=== PATIENT | male | born 1995 | race Two or more races ===

== ENCOUNTER 2024-08-29 06:15 | Inpatient (IN) | payer MEDICAID, OTHER ==
[~2024-08-29] VITALS: Ht 190.5 cm; Wt 159.0 kg
[2024-08-29] MEDS: METOCLOPRAMIDE HCL 5MG/ml INJ 2ml VIAL IV ONE (07:11)
[2024-08-29] MEDS: KETOROLAC TROMETH 30 MG/ML 1ML VIAL IV ONE (07:11)
--- NOTE | 2024-08-29 07:29 | ED.PDOC ---
GI ASSESSMENT HPI Comments 29 year old male presents to the ED with chief complaint of abdominal pain. Patient reports that he had woken up around 2-3am this morning with 10/10 sharp RLQ abdominal pain that radiates to the right groin region. Patient relays that he also has had 2 associated episodes of nausea and vomiting prior to arrival in the ED. Patient denies any dysuria, history of kidney stones, diarrhea, fever, chills, difficulty urinating, testicular swelling, or hematemesis. Chief Complaint: Abdominal Pain Time Seen by MD: 07:25 Reviewed Notes: Nurses Notes, Medications, Allergies Allergies: Coded Allergies: NO KNOWN ALLERGIES (Unverified , 08/29/24) Information Source: Patient Mode of Arrival: Ambulatory Timing: Hours Duration: Since onset Prehospital treatment: None Quality: Sharp Vomitus: Watery Stool: Normal Severity: Moderate Recent: None Recent Hx of: None Pain Location: RLQ Modifying Factors: Nothing Associated sign and symptoms: Nausea, Vomiting, Abdominal Pain, Other (Testicle pain) Past Medical History PAST MEDICAL HISTORY: Denies Surgical History: Denies all surgeries Family History Family History: Reviewed,noncontributory to illness Social History Smoker: Non-Smoker Alcohol: Denies ETOH Use Drugs: Denies Drug Use Lives In: Home Constitutional: denies: chills, diaphoresis, fatigue, fever, malaise, sweats, weakness, others EENTM: denies: blurred vision, double vision, ear bleeding, ear discharge, ear drainage, ear pain, ear ringing, eye pain, eye redness, hearing loss, mouth pain , mouth swelling, nasal discharge, nose bleeding, nose congestion, nose pain, photophobia, tearing, throat pain, throat swelling, voice changes, others Respiratory: denies: cough, hemoptysis, orthopnea, SOB at rest, shortness of breath, SOB with excertion, stridor, wheezing, others Cardiovascular: denies: chest pain, dizzy spells, diaphoresis, Dyspnea on exertion, edema, irregular heart beat, left arm pain, lightheadedness, palpitations, PND, syncope, others Gastrointestinal: reports: abdominal pain, nausea, vomiting; denies: abdomen distended, blood streaked bowels, constipated, diarrhea, dysphagia, difficulty swallowing, hematemesis, melena, poor appetite, poor fluid intake, rectal bleeding, rectal pain, others Genitourinary: reports: testicle pain; denies: burning, dysuria, flank pain, frequency, hematuria, incontinence, penile discharge, penile sore, pain, testicle swelling, urgency, others Neurological: denies: dizziness, fainting, headache, left sided numbness, left sided weakness, numbness, paresthesia, pre-existing deficit, right sided numbness, right sided weakness, seizure, speech problems, tingling, tremors, weakness, others Musculoskeletal: denies: back pain, gout, joint pain, joint swelling, muscle pain, muscle stiffness, neck pain, others Integumetry: denies: bruises, change in color, change in hair/nails, dryness, laceration, lesions, lumps, rash, wounds, others Allergic/Immunocompromised: denies: Difficulty Healing, Frequent Infections, Hives, Itching, others Hematologic/Lymphatic: denies: anemia, blood clots, easy bleeding, easy bruising, swollen glands, others Endocrine: denies: excessive hunger, excessive sweating, excessive thirst, excessive urination, flushing, intolerance to cold, intolerance to heat, unexplained weight gain, unexplained weight loss, others Psychiatric: denies: anxiety, bipolar disorder, depression, hopeless, panic disorder, schizophrenia, sleepless, suicidal, others All Other Systems: Reviewed and Negative Physical Exam General Appearance: Moderate Distress, Obese HEENT: Normal ENT Inspection, PERRL/EOMI Neck: Full Range of Motion, Non-Tender, Normal, Normal Inspection Respiratory: Chest Non-Tender, Lungs Clear, No Accessory Muscle Use, No Respiratory Distress, Normal Breath Sounds Cardiovascular: No Edema, No JVD, No Murmur, No Gallop, Normal Peripheral Pulses, Regular Rate/Rhythm Breast Exam: Deferred Gastrointestinal: No Organomegaly, No Pulsatile Mass, Normal Bowel Sounds, Soft, Tenderness (Tenderness to the right inguinal region) Genitalia: Deferred Pelvic: Deferred Rectal: Deferred Extremities: No calf tenderness, Normal capillary refill, Normal inspection, Normal range of motion, Non-tender, No pedal edema Musculoskeletal : Apperance: Normal Neurologic: Alert, rn faculty II-XII nml as Tested, No Motor Deficits, Normal Affect, Normal Mood, No Sensory Deficits Cerebellar Function: Normal Reflexes: Normal Skin: Dry, Normal Color, Warm Lymphatic: No Adenopathy Was a procedure done? Was a procedure done?: No GI differential Dx Differential Diagnosis: AAA, Appendicitis, Aortic dissection, Bowel Obstruction X-Ray, Labs, Meds, VS Vital Signs Date Time Temp Pulse Resp B/P (MAP) Pulse Ox O2 Delivery O2 Flow Rate FiO2 08/29/24 13:57 98.4 92 18 148/95 (112) 98 98.4 08/29/24 11:03 82 20 99 Room Air 08/29/24 11:03 98.2 82 20 134/78 (96) 99 98.2 08/29/24 06:35 96.4 89 20 113/96 (102) 98 Lab Test 08/29/24 08:00 08/29/24 07:35 Range/Units Urine Color Madeline H Yellow Urine Clarity Cloudy H Clear Urine pH 5.5 5.0-9.0 Urine Specific [place] 1.031 1.001-1.035 Urine Protein 1+ H Negative Urine Ketones Negative Negative Urine Blood 3+ H Negative /uL Urine Nitrite Negative Negative Urine Bilirubin Negative Negative Urine Urobilinogen Normal Negative mg/dL Urine Leukocyte Esterase Negative Negative /uL Urine RBC 26 0 - 3 /hpf Urine WBC 3 0 - 3 /hpf Urine Squamous Epithelial Cells None seen <5 /hpf Urine Amorphous Crystals Mod None Seen /hpf Urine Bacteria None seen None Seen /hpf Urine Glucose Trace Normal mg/dL White Blood Count 11.3 H 4.4-10.8 10^3/uL Red Blood Count 5.58 4.5-5.90 10^6/uL Hemoglobin 13.5 13.5-17.5 g/dL Hematocrit 40.8 L 41.0-53.0 % Mean Corpuscular Volume 73.1 L 80.0-100.0 fL Mean Corpuscular Hemoglobin 24.1 L 28.0-32.0 pg Mean Corpuscular Hemoglobin Concent 33.0 32.0-36.0 g/dL Red Cell Distribution Width 15.8 H 11.8-14.3 % Platelet Count 229 140-450 10^3/uL Mean Platelet Volume 9.3 6.9-10.8 fL Neutrophils (%) (Auto) 67.5 37.0-80.0 % Lymphocytes (%) (Auto) 28.9 10.0-50.0 % Monocytes (%) (Auto) 2.8 0.0-12.0 % Eosinophils (%) (Auto) 0.3 0.0-7.0 % Basophils (%) (Auto) 0.5 0.0-2.0 % Neutrophils # (Auto) 7.6 1.6-8.6 10 ^3/uL Lymphocytes # (Auto) 3.3 0.4-5.4 10 ^3/uL Monocytes # (Auto) 0.3 0-1.3 10 ^3/uL Eosinophils # (Auto) 0 0-0.8 10 ^3/uL Basophils # (Auto) 0.1 0-0.2 10 ^3/uL Nucleated Red Blood Cells 0.0 % Sodium Level 139 136-145 mmol/L Potassium Level 4.1 3.5-5.1 mmol/L Chloride Level 106 98-107 mmol/L Carbon Dioxide Level 24 20-31 mmol/L Anion Gap 9 5-15 Blood Urea Nitrogen 15 9-23 mg/dL Creatinine 1.12 0.700-1.30 mg/dL Glomerular Filtration Rate Calc 92 >90 mL/min BUN/Creatinine Ratio 13.4 10.0-20.0 Serum Glucose 170 H 74-106 mg/dL Hemoglobin A1c 7.1 H <5.7 % A1C Calcium Level 9.8 8.7-10.4 mg/dL Total Bilirubin 0.4 0.2-1.0 mg/dL Aspartate Amino Transferase (AST) 75 H 13-40 U/L Alanine Aminotransferase (ALT) 85 H 7-40 U/L Alkaline Phosphatase 90 46-116 U/L Total Protein 7.9 5.7-8.2 g/dL Albumin 4.7 3.2-4.8 g/dL Current Medications Medications (Trade) Dose Ordered Sig/Mikhail Route Start Time Stop Time Status Last Admin Metoclopramide HCl (Reglan Injection) 10 mg ONCE ONCE IV 08/29/24 07:15 08/29/24 07:16 DC 08/29/24 07:11 Ketorolac Tromethamine (Toradol Injection) 30 mg ONCE ONCE IV 08/29/24 07:15 08/29/24 07:16 DC 08/29/24 07:11 CT Abd/Pel: Findings: Lung Bases: No acute or significant lung base finding. Normal heart size. No pl eural or pericardial effusion. Liver: The liver is normal in size. No focal lesions. Normal hepatic vascular enhancement. Diffusely hypoattenuating liver parenchyma consistent with hepatic steatosis. Gallbladder and Biliary Tree: The gallbladder is unremarkable. No biliary ductal dilatation. Spleen: Spleen is enlarged measuring 13.5 cm in length. Pancreas: The pancreas is normal in appearance without focal lesions or abnormal enhancement. Adrenal Glands: Unremarkable Kidneys: There is diminished enhancement of the right kidney as compared to the left. There is mild right hydronephrosis. There is a punctate stone at the ri ght ureterovesical junction. Left kidney and ureter are unremarkable. Bladder: Unremarkable Bowel: The stomach is grossly normal in appearance. Small bowel and colon are normal in caliber and distribution. The appendix is not visualized; however, no secondary findings of acute appendicitis identified. Intraperitoneal cavity: No pneumoperitoneum. No ascites. Lymphadenopathy: No mesenteric, retroperitoneal or periportal lymphadenopathy. Abdominal Wall and Mesentery: Unremarkable. Vasculature: The visualized abdominal aorta is normal in size and caliber. Abdominal and pelvic vessels demonstrate normal enhancement. Pelvic Organs: Unremarkable Musculoskeletal: No aggressive focal bony lesions, acute fractures or dislocation. IMPRESSION: 1. Mild right hydroureteronephrosis due to punctate obstructive calculus at the right ureterovesical junction. 2. Hepatic steatosis. 3. No findings to suggest acute appendicitis. 4. Splenomegaly. Time of 1ST Reevaluation: 08:25 Reevaluation 1ST: Improved Patient Education/Counseling: Diagnosis, Treatment Family Education/Counseling: No Family Present Additional Information I reviewed the following notes from patient's past medical encounters: None The following tests were ordered, and results were reviewed by me: CT Abd/Pel W/Wo IV Con, CBC, CMP, UA Additional Information was gathered from interviewing the following independent historians: None I reviewed and agreed with the following test results read by other providers: CT Abd/Pel W/Wo IV Con I discussed treatment and results with medical personnel. Departure 1 Departure Time of Disposition: 16:37 Impression: Primary Impression: Nephrolithiasis Additional Impressions: Ureteral obstruction Intractable abdominal pain Disposition: ADMITTED INPATIENT Admit to: Med Surg Condition: Stable Critical Care Note Critical Care Time?: No Stability Stability form required: No Heart Score Heart Score: Heart Score Response (Comments) Value History N/A 0 EKG N/A 0 Age N/A 0 Risk Factors N/A 0 Troponin N/A 0 Total 0 I personally scribed for MIMI GRAVES MD ([email or web address]) on 08/29/24 at 07:29. Electronically submitted by Tristan Johnson ([email or web address]). I personally scribed for MIMI GRAVES MD ([email or web address]) on 08/29/24 at 09:52. Electronically submitted by Tristan Johnson ([email or web address]). MIMI GRAVES MD Aug 29, 2024 07:29
[2024-08-29 08:19] LABS: Urine Bacteria None Seen /hpf (None Seen)
[2024-08-29 08:26] LABS: Albumin 4.7 g/dL (3.2-4.8); Alkaline Phosphatase 90 U/L (46-116); Anion Gap 9 (5-15); BUN/Creatinine Ratio 13.4 (10.0-20.0); Blood Urea Nitrogen 15 mg/dL (9-23); Calcium 9.8 mg/dL (8.7-10.4); Carbon Dioxide 24 mmol/L (20-31); Chloride 106 mmol/L (98-107); Eosinophils # (auto) 0 10 ^3/uL (0-0.8); Hemoglobin 13.5 g/dL (13.5-17.5); Lymphocytes # (auto) 3.3 10 ^3/uL (0.4-5.4); Monocytes # (auto) 0.3 10 ^3/uL (0-1.3); Potassium 4.1 mmol/L (3.5-5.1); Sodium 139 mmol/L (136-145)
[2024-08-29 08:27] LABS: Bilirubin, Total 0.4 mg/dL (0.2-1.0); Total Protein 7.9 g/dL (5.7-8.2)
[2024-08-29 08:30] LABS: Basophils # (auto) 0.1 10 ^3/uL (0-0.2); Basophils % (auto) 0.5 % (0.0-2.0); Eosinophils % (auto) 0.3 % (0.0-7.0); Hematocrit 40.8 % (41.0-53.0); Lymphocytes % (auto) 28.9 % (10.0-50.0); Mean Corpuscular Hemoglobin 24.1 pg (28.0-32.0); Mean Corpuscular Volume 73.1 fL (80.0-100.0); Monocytes % (auto) 2.8 % (0.0-12.0); Neutrophils # (auto) 7.6 10 ^3/uL (1.6-8.6); Neutrophils % (auto) 67.5 % (37.0-80.0); Platelet Count (auto) 229 10^3/uL (140-450); Red Blood Cells 5.58 10^6/uL (4.5-5.90); Red Cell Distribution Width 15.8 % (11.8-14.3); White Blood Cell 11.3 10^3/uL (4.4-10.8)
[2024-08-29 08:31] LABS: Alanine Aminotransferase 85 U/L (7-40); Aspartate Aminotransferase 75 U/L (13-40); Glucose 170 mg/dL (74-106)
[2024-08-29 09:15] LABS: Urine Amorphous Crystal MOD /hpf (None Seen); Urine Blood 3+ /uL (Negative); Urine Color Amber (Yellow); Urine Protein, UAD 1+ (Negative); Urine Specific Gravity 1.031 (1.001-1.035); Urine Squamous Epithelial Cell None Seen /hpf (<5); Urine Urobilinogen Normal (Negative); Urine WBC 3 /hpf (0 - 3); Urine pH 5.5 (5.0-9.0)
[2024-08-29 09:16] LABS: Urine Clarity Cloudy (Clear)
[2024-08-29] MEDS: IOHEXOL 300 MG/ML 100ML BOTTLE IJ ONE (09:22)
--- NOTE | 2024-08-29 09:49 | DVH ---
Exam: CT CT AB PELVIS W WO CON-IV ONLY History: ABd pain, RLQ. Rule out appendicitis or kidney stone. Comparison Study: None available at time of dictation. Technique: Multidetector spiral CT of the abdomen and pelvis was performed from lung bases to pubic s ymphysis. Imaging was performed with intravenous contrast using 100 mL Omnipaque 300 contrast. Nabeel nal and sagittal reformatted images are provided. Radiation Dose : CT Dose: CTDI volume is 27.11 mGy. Dose-length product is 2811.21 mGy*cm Findings: Lung Bases: No acute or significant lung base finding. Normal heart size. No pleural or pericardial effusion. Liver: The liver is normal in size. No focal lesions. Normal hepatic vascular enhancement. Diffusely hypoattenuating liver parenchyma consistent with hepatic steatosis. Gallbladder and Biliary Tree: The gallbladder is unremarkable. No biliary ductal dilatation. Spleen: Spleen is enlarged measuring 13.5 cm in length. Pancreas: The pancreas is normal in appearance without focal lesions or abnormal enhancement. Adrenal Glands: Unremarkable Kidneys: There is diminished enhancement of the right kidney as compared to the left. There is mild right hydronephrosis. There is a punctate stone at the right ureterovesical junction. Left kidney an d ureter are unremarkable. Bladder: Unremarkable Bowel: The stomach is grossly normal in appearance. Small bowel and colon are normal in caliber and d istribution. The appendix is not visualized; however, no secondary findings of acute appendicitis id entified. Intraperitoneal cavity: No pneumoperitoneum. No ascites. Lymphadenopathy: No mesenteric, retroperitoneal or periportal lymphadenopathy. Abdominal Wall and Mesentery: Unremarkable. Vasculature: The visualized abdominal aorta is normal in size and caliber. Abdominal and pelvic vess els demonstrate normal enhancement. Pelvic Organs: Unremarkable Musculoskeletal: No aggressive focal bony lesions, acute fractures or dislocation. IMPRESSION: 1. Mild right hydroureteronephrosis due to punctate obstructive calculus at the right ureterovesical junction. 2. Hepatic steatosis. 3. No findings to suggest acute appendicitis. 4. Splenomegaly. Radiation optimization: All CT scans at this facility use at least one of these dose optimization daria hniques: automated exposure control mA and/or kV adjustment per patient size (includes targeted exam s where dose is matched to clinical indication) or iterative reconstruction.
[2024-08-29] MEDS ORDERED: ONDANSETRON HCL 4 MG/2 ML VIAL IV PRN (15:15)
[2024-08-29] MEDS ORDERED: HYDROcodone-ACET 5/325MG TAB PO PRN (15:15)
[2024-08-29] MEDS ORDERED: MORPHINE SULFATE INJ 2 MG/ml SYRG IV PRN (15:15)
[2024-08-29] MEDS ORDERED: ACETAMINOPHEN 325 MG TAB PO PRN (15:15)
--- NOTE | 2024-08-29 15:18 | DVHHP2 ---
History of Present Illness Reason for Visit: Abdominal pain History of Present Illness Howard Luevano is a 29-year-old male with no past medical history who presents to the ED with nausea, vomiting, right lower quadrant abdominal pain x1 day. Patient reported around 10:30 p.m. this morning the pain started it has been constant sharp and 9/10 worse with ambulation. Patient reports that he does not smoke, drink, use illicit drugs, no surgeries, no medical history. Patient reports that he is still able to void and no complaints of hematuria. Patient also denies any recent trauma or injury. Patient denies chest pain, shortness of breath, fever, chills, diarrhea, lightheadedness, and dizziness. Past Surgical History: None Family History: DM, Other (Mom with diabetes) Smoke: No ALCOHOL: none Drugs: None Lives: with Family Domestic Violence: Neg Review of Systems Constitutional: No: Fever, Chills, Sweats, Weakness, Malaise, Other Eyes: No: Pain, Vision change, Conjunctivae inflammation, Eyelid inflammation, Other, Redness ENT: No: Ear pain, Ear discharge, Nose pain, Nose discharge, Nose congestion, Mouth pain, Mouth swelling, Throat pain, Throat swelling, Other Respiratory: No: Cough, Dry, Shortness of breath, SOB with excertion, Wheezing, Hemoptysis, Pleuritic Pain, Sputum, Wheezing, Other Cardiovascular: No: Chest Pain, Palpitations, Orthopnea, Paroxysmal Noc. Dyspnea, Edema, Lt Headedness, Other Gastrointestinal: Nausea, Vomiting, Abdominal Pain; No: Diarrhea, Constipation, Melena, Hematochezia, Other Genitourinary: No Dysuria, No Frequency, No Incontinence, No Hematuria, No Retention, No Other Musculoskeletal: No: other, neck pain, shoulder pain, arm pain, back pain, hand pain, leg pain, foot pain Skin: No: Rash, Lesions, Jaundice, Bruising, Other Neurological: No: Weakness, Numbness, Incoordination, Change in speech, Confusion, Seizures, Other Allergies: Coded Allergies: NO KNOWN ALLERGIES (Unverified , 08/29/24) Exam Vital Signs Vital Signs Date Time Temp Pulse Resp B/P (MAP) Pulse Ox O2 Delivery O2 Flow Rate FiO2 08/29/24 13:57 98.4 92 18 148/95 (112) 98 98.4 08/29/24 11:03 Room Air General Appearance: Alert, Oriented X3, Cooperative, No acute distress HEENT: Atraumatic, PERRLA, EOMI, Mucous membr. moist/pink Respiratory: Clear to auscultation, Normal air movement Cardiovascular: Regular rate, Normal S1, Normal S2 Abdominal: Normal bowel sounds, Soft, No tenderness, No hepatospenomegaly, No masses Extremities: No clubbing, No cyanosis, No edema, Normal pulses, No tenderness/swelling Skin: No rashes, No breakdown, No significant lesion Neuro: Normal gait, Normal speech, Strength at 5/5 X4 ext, Normal tone, Sensation intact Psych/Mental Status: Mental status NL, Mood NL Labs/Xrays Labs Test 08/29/24 08:00 08/29/24 07:35 Range/Units Urine Color Madeline H Yellow Urine Clarity Cloudy H Clear Urine pH 5.5 5.0-9.0 Urine Specific [place] 1.031 1.001-1.035 Urine Protein 1+ H Negative Urine Ketones Negative Negative Urine Blood 3+ H Negative /uL Urine Nitrite Negative Negative Urine Bilirubin Negative Negative Urine Urobilinogen Normal Negative mg/dL Urine Leukocyte Esterase Negative Negative /uL Urine RBC 26 0 - 3 /hpf Urine WBC 3 0 - 3 /hpf Urine Squamous Epithelial Cells None seen <5 /hpf Urine Amorphous Crystals Mod None Seen /hpf Urine Bacteria None seen None Seen /hpf Urine Glucose Trace Normal mg/dL White Blood Count 11.3 H 4.4-10.8 10^3/uL Red Blood Count 5.58 4.5-5.90 10^6/uL Hemoglobin 13.5 13.5-17.5 g/dL Hematocrit 40.8 L 41.0-53.0 % Mean Corpuscular Volume 73.1 L 80.0-100.0 fL Mean Corpuscular Hemoglobin 24.1 L 28.0-32.0 pg Mean Corpuscular Hemoglobin Concent 33.0 32.0-36.0 g/dL Red Cell Distribution Width 15.8 H 11.8-14.3 % Platelet Count 229 140-450 10^3/uL Mean Platelet Volume 9.3 6.9-10.8 fL Neutrophils (%) (Auto) 67.5 37.0-80.0 % Lymphocytes (%) (Auto) 28.9 10.0-50.0 % Monocytes (%) (Auto) 2.8 0.0-12.0 % Eosinophils (%) (Auto) 0.3 0.0-7.0 % Basophils (%) (Auto) 0.5 0.0-2.0 % Neutrophils # (Auto) 7.6 1.6-8.6 10 ^3/uL Lymphocytes # (Auto) 3.3 0.4-5.4 10 ^3/uL Monocytes # (Auto) 0.3 0-1.3 10 ^3/uL Eosinophils # (Auto) 0 0-0.8 10 ^3/uL Basophils # (Auto) 0.1 0-0.2 10 ^3/uL Nucleated Red Blood Cells 0.0 % Sodium Level 139 136-145 mmol/L Potassium Level 4.1 3.5-5.1 mmol/L Chloride Level 106 98-107 mmol/L Carbon Dioxide Level 24 20-31 mmol/L Anion Gap 9 5-15 Blood Urea Nitrogen 15 9-23 mg/dL Creatinine 1.12 0.700-1.30 mg/dL Glomerular Filtration Rate Calc 92 >90 mL/min BUN/Creatinine Ratio 13.4 10.0-20.0 Serum Glucose 170 H 74-106 mg/dL Calcium Level 9.8 8.7-10.4 mg/dL Total Bilirubin 0.4 0.2-1.0 mg/dL Aspartate Amino Transferase (AST) 75 H 13-40 U/L Alanine Aminotransferase (ALT) 85 H 7-40 U/L Alkaline Phosphatase 90 46-116 U/L Total Protein 7.9 5.7-8.2 g/dL Albumin 4.7 3.2-4.8 g/dL Exam: CT CT AB PELVIS W WO CON-IV ONLY History: ABd pain, RLQ. Rule out appendicitis or kidney stone. Comparison Study: None available at time of dictation. Technique: Multidetector spiral CT of the abdomen and pelvis was performed from lung bases to pubic symphysis. Imaging was performed with intravenous contrast using 100 mL Omnipaque 300 contrast. Coronal and sagittal reformatted images are provided. Radiation Dose : CT Dose: CTDI volume is 27.11 mGy. Dose-length product is 2811.21 mGy*cm Findings: Lung Bases: No acute or significant lung base finding. Normal heart size. No pleural or pericardial effusion. Liver: The liver is normal in size. No focal lesions. Normal hepatic vascular enhancement. Diffusely hypoattenuating liver parenchyma consistent with hepatic steatosis. Gallbladder and Biliary Tree: The gallbladder is unremarkable. No biliary ductal dilatation. Spleen: Spleen is enlarged measuring 13.5 cm in length. Pancreas: The pancreas is normal in appearance without focal lesions or abnormal enhancement. Adrenal Glands: Unremarkable Kidneys: There is diminished enhancement of the right kidney as compared to the left. There is mild right hydronephrosis. There is a punctate stone at the right ureterovesical junction. Left kidney and ureter are unremarkable. Bladder: Unremarkable Bowel: The stomach is grossly normal in appearance. Small bowel and colon are normal in caliber and distribution. The appendix is not visualized; however, no secondary findings of acute appendicitis identified. Intraperitoneal cavity: No pneumoperitoneum. No ascites. Lymphadenopathy: No mesenteric, retroperitoneal or periportal lymphadenopathy. Abdominal Wall and Mesentery: Unremarkable. Vasculature: The visualized abdominal aorta is normal in size and caliber. Abdominal and pelvic vessels demonstrate normal enhancement. Pelvic Organs: Unremarkable Musculoskeletal: No aggressive focal bony lesions, acute fractures or dislocation. IMPRESSION: 1. Mild right hydroureteronephrosis due to punctate obstructive calculus at the right ureterovesical junction. 2. Hepatic steatosis. 3. No findings to suggest acute appendicitis. 4. Splenomegaly. Assessment/Plan Assessment/Plan Assessment/Plan: Intractable abdominal pain likely secondary to mild right hydroureter nephrosis Leukocytosis Elevated AST Elevated ALT Mild right hydroureteronephrosis due to punctate obstructive calculus at the right ureterovesical junction. Pain management Antiemetics CT abdomen pelvis noted UA noted Labs A.m. labs Flomax US kidney Hyperglycemia Hemoglobin A1c Splenomegaly Hepatic steatosis Follow up outpatient with PCP Morbid obesity Educated patient on lifestyle modifications, diet, and exercise FEN/PPX Diet IV fluids DVT prophylaxis not indicated patient ambulating PD prophylaxis not indicated patient with no history of GERD or GI bleed Admit to med surg Patient states he doesn't take any home medications Discussed plan of care with patient, mom and nurse Plan discussed with: Patient My Orders Orders - ESTEFANÍA EVANGELISTA Procedure Category Date Status Time Admit ADMIT 08/29/24 Transmitted 15:03 Allergies GILES 08/29/24 Transmitted 15:03 Code Status CODE 08/29/24 Transmitted 15:03 0.9% Ns 1000 Ml PHA 08/29/24 Transmitted 15:15 Hydrocodone-Acet PHA 08/29/24 Transmitted 5/325mg Tab ([place] 15:15 Ondansetron Hcl PHA 08/29/24 Transmitted (Zofran) 15:15 Complete Blood Count LAB 08/30/24 Verified 04:00 Comprehensive LAB 08/30/24 Verified Metabolic Panel 04:00 Cardiac DIET 08/29/24 Transmitted Diet-2gna,Lofat,Lochol Dinner Acetaminophen Tablet PHA 08/29/24 Transmitted (Tylenol Tablet) 15:15 Morphine Sulfate PHA 08/29/24 Transmitted Injection 15:15 Tamsulosin PHA 08/29/24 Transmitted Hydrochloride (Flomax) 15:15 Tamsulosin PHA 08/29/24 Transmitted Hydrochloride (Flomax) 18:00 Ceftriaxone Ivpb PHA 08/30/24 Verified Rocephin 09:00 Ceftriaxone Ivpb PHA 08/29/24 Verified Rocephin 15:15 Date of Service: Aug 29, 2024 Billing Provider: ESTEFANÍA EVANGELISTA Common Visit Codes: [id number] INP/OBS CARE (HIGH) ESTEFANÍA EVANGELISTA Aug 29, 2024 15:18
[2024-08-29 15:32] VITALS: BP 148/76; PULSE 94; RESP 18; TEMP 99.2; O2SAT 98
[2024-08-29 15:45] VITALS: BP 148/76; PULSE 94; RESP 18; TEMP 99.2; O2SAT 98
--- NOTE | 2024-08-29 15:47 | DVH ---
RENAL ULTRASOUND CLINICAL HISTORY: right hydronephrosis TECHNIQUE: Multiple ultrasound images of the kidneys and bladder were obtained. COMPARISON: None FINDINGS: The right kidney measures 13 cm in length. The left kidney measures 12 cm. The kidneys demonstrate ap propriate echotexture without evidence of a discrete renal lesion, nephrolithiasis or hydronephrosis. There is normal renal cortical thickness. Bladder appears within normal limits prevoid volume measuring 456 cc. IMPRESSION: 1. Unremarkable renal ultrasound. HS:Y
[2024-08-29] MEDS: SODIUM CHLORIDE 0.9% 1,000 ML IV SCH (15:54)
[2024-08-29] MEDS: TAMSULOSIN HYDROCHLORIDE 0.4 MG CAP PO ONE (16:04)
[2024-08-29] MEDS: cefTRIAXone 1GM/50ML D5W 50 ML IV ONE (16:04)
[2024-08-29 17:00] VITALS: BP 142/75; PULSE 82; RESP 16; TEMP 99.1; O2SAT 100
[2024-08-29 20:00] VITALS: RESP 20; O2SAT 98
[2024-08-29 21:00] VITALS: BP 119/67; PULSE 100; RESP 21; TEMP 98; O2SAT 100
[2024-08-30] VITALS (8 sets, daily range): BP systolic 108–138; BP diastolic 64–84; PULSE 72–91; RESP 17–21; TEMP 97.5–98.6; O2SAT 92–99
[2024-08-30 06:12] LABS: Eosinophils # (auto) 0.1 10 ^3/uL (0-0.8); Eosinophils % (auto) 1.5 % (0.0-7.0); Hemoglobin 12.2 g/dL (13.5-17.5); Lymphocytes # (auto) 4.4 10 ^3/uL (0.4-5.4); Monocytes # (auto) 0.5 10 ^3/uL (0-1.3); Neutrophils # (auto) 4.2 10 ^3/uL (1.6-8.6); Nucleated Red Blood Cells % 0.1 %; Red Cell Distribution Width 15.9 % (11.8-14.3)
[2024-08-30 06:14] LABS: Albumin 4.2 g/dL (3.2-4.8); Alkaline Phosphatase 76 U/L (46-116); Anion Gap 7 (5-15); BUN/Creatinine Ratio 19.6 (10.0-20.0); Bilirubin, Total 0.6 mg/dL (0.2-1.0); Blood Urea Nitrogen 18 mg/dL (9-23); Calcium 9.6 mg/dL (8.7-10.4); Carbon Dioxide 25 mmol/L (20-31); Potassium 4.3 mmol/L (3.5-5.1); Sodium 141 mmol/L (136-145); Total Protein 6.9 g/dL (5.7-8.2)
[2024-08-30 06:15] LABS: Basophils # (auto) 0.1 10 ^3/uL (0-0.2); Basophils % (auto) 0.7 % (0.0-2.0); Hematocrit 37.6 % (41.0-53.0); Lymphocytes % (auto) 47.5 % (10.0-50.0); Mean Corpuscular Hemoglobin 23.9 pg (28.0-32.0); Mean Corpuscular Hgb Conc. 32.5 g/dL (32.0-36.0); Mean Corpuscular Volume 73.5 fL (80.0-100.0); Monocytes % (auto) 5.1 % (0.0-12.0); Neutrophils % (auto) 45.2 % (37.0-80.0); Platelet Count (auto) 221 10^3/uL (140-450); Red Blood Cells 5.11 10^6/uL (4.5-5.90); White Blood Cell 9.3 10^3/uL (4.4-10.8)
[2024-08-30 06:16] LABS: Alanine Aminotransferase 71 U/L (7-40); Aspartate Aminotransferase 44 U/L (13-40); Chloride 109 mmol/L (98-107); Glucose 142 mg/dL (74-106)
[2024-08-30] MEDS: cefTRIAXone 1GM/50ML D5W 50 ML IV SCH (08:44)
--- NOTE | 2024-08-30 12:45 | DVHPN2 ---
Reviewed: Care Plan, H&P, Labs, Medications, Previous Orders, Radiology Changes from previous H/P or p: No Changes Eyes: No Pain, No Vision change, No Conjunctivae inflammation, No Eyelid inflammation, No Other, No Redness ENT: No Ear pain, No Ear discharge, No Nose pain, No Nose discharge, No Nose congestion, No Mouth pain, No Mouth swelling, No Throat pain, No Throat swelling, No Other Cardiovascular: No Chest Pain, No Palpitations, No Orthopnea, No Paroxysmal Noc. Dyspnea, No Edema, No Lt Headedness, No Other Respiratory: No Cough, No Dry, No Shortness of breath, No SOB with excertion, No Wheezing, No Hemoptysis, No Pleuritic Pain, No Sputum, No Other Gastrointestinal: Nausea, Vomiting, Abdominal Pain; No Diarrhea, No Constipation, No Melena, No Hematochezia, No Other Genitourinary: No Dysuria, No Frequency, No Incontinence, No Hematuria, No Retention, No Other Musculoskeletal: No other, No neck pain, No shoulder pain, No arm pain, No back pain, No hand pain, No leg pain, No foot pain Skin: No Rash, No Lesions, No Jaundice, No Bruising, No Other Objective Vitals Vital Signs Date Time Temp Pulse Resp B/P (MAP) Pulse Ox O2 Delivery O2 Flow Rate FiO2 08/30/24 08:56 98.3 88 17 118/71 (87) 95 98.3 08/29/24 20:00 Room Air* 0 21 Intake/Output Intake and Output 08/30/24 07:00 Intake Total 1444 ml Output Total 591 ml Balance 853 ml Intake Oral 1334 ml IV Total 110 ml Output Urine Total 591 ml # Voids 2 # Bowel Movements 1 Medications Current Medications Medications Dose Ordered Sig/Mikhail Route Start Time Stop Time Status Last Admin Dose Admin Sodium Chloride 1,000 ml @ 100 mls/hr Q10H IV 08/29/24 15:15 08/30/24 01:15 100 MLS/HR Acetaminophen/ Hydrocodone Bitart 1 tab Q4HP PRN PO 08/29/24 15:15 Ondansetron HCl 4 mg Q4HP PRN IV 08/29/24 15:15 Acetaminophen 650 mg Q6HP PRN PO 08/29/24 15:15 Morphine Sulfate 2 mg Q4HPRN PRN IV 08/29/24 15:15 Tamsulosin HCl 0.4 mg QPM PO 08/30/24 18:00 Ceftriaxone Sodium 50 ml @ 100 mls/hr DAILY@09 IV 08/30/24 09:00 08/30/24 08:44 100 MLS/HR Laboratory Results Laboratory Tests 08/30/24 05:24 Chemistry Test 08/30/24 05:24 Albumin 4.2 g/dL (3.2-4.8) Calcium Level 9.6 mg/dL (8.7-10.4) Total Protein 6.9 g/dL (5.7-8.2) LFT Test 08/30/24 05:24 Alanine Aminotransferase (ALT) 71 U/L (7-40) H Alkaline Phosphatase 76 U/L (46-116) Aspartate Amino Transferase (AST) 44 U/L (13-40) H Total Bilirubin 0.6 mg/dL (0.2-1.0) Urinalysis Test 08/29/24 08:00 Urine Color Madeline (Yellow) H Urine Clarity Cloudy (Clear) H Urine pH 5.5 (5.0-9.0) Urine Specific [place] 1.031 (1.001-1.035) Urine Protein 1+ (Negative) H Urine Ketones Negative (Negative) Urine Blood 3+ /uL (Negative) H Urine Nitrite Negative (Negative) Urine Bilirubin Negative (Negative) Urine Urobilinogen Normal mg/dL (Negative) Urine Leukocyte Esterase Negative /uL (Negative) Urine RBC 26 /hpf (0 - 3) Urine WBC 3 /hpf (0 - 3) Urine Squamous Epithelial Cells None seen /hpf (<5) Urine Amorphous Crystals Mod /hpf (None Seen) Urine Bacteria None seen /hpf (None Seen) Urine Glucose Trace mg/dL (Normal) Labs and/or images reviewed: Labs reviewed by me, Image(s) reviewed by me Assessment/Plan Assessment/Plan Abdominal pain nausea and vomiting unknown etiology: Consult for GI Dr. Castillo, urine drug screen ordered, Rocephin Acute appendicitis ruled out Acute cholecystitis ruled out Acute dehydration: IV fluids Time spent 35 minutes Plan discussed with: Patient My Orders Orders - RACHAEL HOPE MD Procedure Category Date Status Time Drug Screen LAB 08/30/24 Logged 12:42 * Gi D[facility] Conference Translator CONS 08/30/24 Verified 12:42 Date of Service: Aug 30, 2024 Billing Provider: RACHAEL HOPE MD Common Visit Codes: [id number] INP/OBS CARE(HIGH) RACHAEL HOPE MD Aug 30, 2024 12:45
--- NOTE | 2024-08-30 14:10 | DVHINCON2 ---
Date of service: Aug 30, [address] Marysol Jacob Reason for Consultation Abdominal pain nausea vomiting History of Present Illness This 29-year-old obese man with history of mild hypertension admitted with complaints of nausea vomiting right lower quadrant pain radiating to both the suprapubic area. He has no hematemesis no melena no diarrhea hematochezia CT scan showed possible kidney stone the urinalysis shows hematuria 3+ and AST ALT are increased probably from nonalcoholic liver disease (MASLD) GI consult is because of the GI symptoms Past Medical History Obesity Past Surgical History None Family History: Diabetes mellitus G8 MOTHER Family History Diabetes Social History Denies smoking or drinking Allergies: Coded Allergies: NO KNOWN ALLERGIES (Unverified , 08/29/24) Current Medications Current Medications Medications (Trade) Dose Ordered Sig/Mikhail Route PRN Reason Start Time Stop Time Status Last Admin Sodium Chloride 1,000 ml @ 100 mls/hr Q10H IV 08/29/24 15:15 08/30/24 01:15 Acetaminophen/ Hydrocodone Bitart (Merritt 5/325MG Tab) 1 tab Q4HP PRN PO MODERATE PAIN (4-6 PAIN SCALE) 08/29/24 15:15 Ondansetron HCl (Zofran) 4 mg Q4HP PRN IV NAUSEA / VOMITING 08/29/24 15:15 Acetaminophen (Tylenol Tablet) 650 mg Q6HP PRN PO PAIN SCALE 1-3 OR TEMP>100.4 08/29/24 15:15 Morphine Sulfate 2 mg Q4HPRN PRN IV SEVERE PAIN (7-10 PAIN SCALE) 08/29/24 15:15 Tamsulosin HCl (Flomax) 0.4 mg QPM PO 08/30/24 18:00 Ceftriaxone Sodium 50 ml @ 100 mls/hr DAILY@09 IV 08/30/24 09:00 08/30/24 08:44 Review of Systems unRemarkable Vital Signs Vital Signs Date Time Temp Pulse Resp B/P (MAP) Pulse Ox O2 Delivery O2 Flow Rate FiO2 08/30/24 13:00 98.0 72 17 129/75 (93) 95 98.0 08/29/24 20:00 Room Air* 0 21 Physical Exam Obese male no acute distress vital signs are stable HEENT examination no pallor no icterus lungs: Clear Cardiovascular , unremarkable Abdomen soft obese mild tenderness in the suprapubic area rigidity no guarding Extremities no edema Labs/Diagnostic Data Labs Test 08/30/24 05:24 08/29/24 08:00 08/29/24 07:35 Range/Units White Blood Count 9.3 4.4-10.8 10^3/uL Red Blood Count 5.11 4.5-5.90 10^6/uL Hemoglobin 12.2 L 13.5-17.5 g/dL Hematocrit 37.6 L 41.0-53.0 % Mean Corpuscular Volume 73.5 L 80.0-100.0 fL Mean Corpuscular Hemoglobin 23.9 L 28.0-32.0 pg Mean Corpuscular Hemoglobin Concent 32.5 32.0-36.0 g/dL Red Cell Distribution Width 15.9 H 11.8-14.3 % Platelet Count 221 140-450 10^3/uL Mean Platelet Volume 9.1 6.9-10.8 fL Neutrophils (%) (Auto) 45.2 37.0-80.0 % Lymphocytes (%) (Auto) 47.5 10.0-50.0 % Monocytes (%) (Auto) 5.1 0.0-12.0 % Eosinophils (%) (Auto) 1.5 0.0-7.0 % Basophils (%) (Auto) 0.7 0.0-2.0 % Neutrophils # (Auto) 4.2 1.6-8.6 10 ^3/uL Lymphocytes # (Auto) 4.4 0.4-5.4 10 ^3/uL Monocytes # (Auto) 0.5 0-1.3 10 ^3/uL Eosinophils # (Auto) 0.1 0-0.8 10 ^3/uL Basophils # (Auto) 0.1 0-0.2 10 ^3/uL Nucleated Red Blood Cells 0.1 % Sodium Level 141 136-145 mmol/L Potassium Level 4.3 3.5-5.1 mmol/L Chloride Level 109 H 98-107 mmol/L Carbon Dioxide Level 25 20-31 mmol/L Anion Gap 7 5-15 Blood Urea Nitrogen 18 9-23 mg/dL Creatinine 0.92 0.700-1.30 mg/dL Glomerular Filtration Rate Calc 116 >90 mL/min BUN/Creatinine Ratio 19.6 10.0-20.0 Serum Glucose 142 H 74-106 mg/dL Calcium Level 9.6 8.7-10.4 mg/dL Total Bilirubin 0.6 0.2-1.0 mg/dL Aspartate Amino Transferase (AST) 44 H 13-40 U/L Alanine Aminotransferase (ALT) 71 H 7-40 U/L Alkaline Phosphatase 76 46-116 U/L Total Protein 6.9 5.7-8.2 g/dL Albumin 4.2 3.2-4.8 g/dL Urine Color Madeline H Yellow Urine Clarity Cloudy H Clear Urine pH 5.5 5.0-9.0 Urine Specific [place] 1.031 1.001-1.035 Urine Protein 1+ H Negative Urine Ketones Negative Negative Urine Blood 3+ H Negative /uL Urine Nitrite Negative Negative Urine Bilirubin Negative Negative Urine Urobilinogen Normal Negative mg/dL Urine Leukocyte Esterase Negative Negative /uL Urine RBC 26 0 - 3 /hpf Urine WBC 3 0 - 3 /hpf Urine Squamous Epithelial Cells None seen <5 /hpf Urine Amorphous Crystals Mod None Seen /hpf Urine Bacteria None seen None Seen /hpf Urine Glucose Trace Normal mg/dL Hemoglobin A1c 7.1 H <5.7 % A1C Assessment 29-year-old obese male with a history of suprapubic pain as well as right low quadrant pain with nausea and vomiting. Denying any unusual food intake she denies history of any hematemesis or melena patient's calcium dysuria and hematuria in her urine examination Insert patient has got a kidney stone in the right ureter Ms. Feeling better and has some stone particles in the urine according to the patient Physical exams and morbidly obese male and some tenderness in the suprapubic area no masses AST ALT increased probably from MASLD (Metabolic dysfunction associated liver disease) Plan/Recommendation Recommend plenty of fluids and watch the urine Pain so much better and the problems from the ureteric stone If symptoms persist may need further evaluate To follow the liver enzymes and aggressive measures to reduce the weight including possibly Ozempic etc Thank you Dr. Vences Plan discussed with: Patient BOB VENCES MD Aug 30, 2024 14:10
[2024-08-30] MEDS: TAMSULOSIN HYDROCHLORIDE 0.4 MG CAP PO SCH (18:03)
[2024-08-31 01:00] VITALS: BP 130/79; PULSE 83; RESP 19; TEMP 99.3; O2SAT 96
[2024-08-31 05:00] VITALS: BP 131/83; PULSE 85; RESP 21; TEMP 97.8; O2SAT 96
[2024-08-31 08:55] VITALS: BP 126/84; PULSE 79; RESP 18; TEMP 97.5; O2SAT 96
--- NOTE | 2024-08-31 09:35 | DVHPN2 ---
Reviewed: Care Plan, H&P, Labs, Medications, Previous Orders, Radiology Changes from previous H/P or p: No Changes Eyes: No Pain, No Vision change, No Conjunctivae inflammation, No Eyelid inflammation, No Other, No Redness ENT: No Ear pain, No Ear discharge, No Nose pain, No Nose discharge, No Nose congestion, No Mouth pain, No Mouth swelling, No Throat pain, No Throat swelling, No Other Cardiovascular: No Chest Pain, No Palpitations, No Orthopnea, No Paroxysmal Noc. Dyspnea, No Edema, No Lt Headedness, No Other Respiratory: No Cough, No Dry, No Shortness of breath, No SOB with excertion, No Wheezing, No Hemoptysis, No Pleuritic Pain, No Sputum, No Other Gastrointestinal: Nausea, Vomiting, Abdominal Pain; No Diarrhea, No Constipation, No Melena, No Hematochezia, No Other Genitourinary: No Dysuria, No Frequency, No Incontinence, No Hematuria, No Retention, No Other Musculoskeletal: No other, No neck pain, No shoulder pain, No arm pain, No back pain, No hand pain, No leg pain, No foot pain Skin: No Rash, No Lesions, No Jaundice, No Bruising, No Other Objective Vitals Vital Signs Date Time Temp Pulse Resp B/P (MAP) Pulse Ox O2 Delivery O2 Flow Rate FiO2 08/31/24 08:55 97.5 79 18 126/84 (98) 96 97.5 08/30/24 20:00 Room Air* 0 21 Intake/Output Intake and Output 08/31/24 07:00 Intake Total 3558 ml Balance 3558 ml Intake Oral 1608 ml IV Total 1950 ml # Voids 7 # Bowel Movements 5 Medications Current Medications Medications Dose Ordered Sig/Mikhail Route Start Time Stop Time Status Last Admin Dose Admin Sodium Chloride 1,000 ml @ 100 mls/hr Q10H IV 08/29/24 15:15 08/30/24 21:15 100 MLS/HR Acetaminophen/ Hydrocodone Bitart 1 tab Q4HP PRN PO 08/29/24 15:15 Ondansetron HCl 4 mg Q4HP PRN IV 08/29/24 15:15 Acetaminophen 650 mg Q6HP PRN PO 08/29/24 15:15 Morphine Sulfate 2 mg Q4HPRN PRN IV 08/29/24 15:15 Tamsulosin HCl 0.4 mg QPM PO 08/30/24 18:00 08/30/24 18:03 0.4 MG Ceftriaxone Sodium 50 ml @ 100 mls/hr DAILY@09 IV 08/30/24 09:00 08/31/24 08:59 100 MLS/HR Laboratory Results Laboratory Tests 08/30/24 05:24 Urinalysis Test 08/29/24 08:00 Urine Color Madeline (Yellow) H Urine Clarity Cloudy (Clear) H Urine pH 5.5 (5.0-9.0) Urine Specific [place] 1.031 (1.001-1.035) Urine Protein 1+ (Negative) H Urine Ketones Negative (Negative) Urine Blood 3+ /uL (Negative) H Urine Nitrite Negative (Negative) Urine Bilirubin Negative (Negative) Urine Urobilinogen Normal mg/dL (Negative) Urine Leukocyte Esterase Negative /uL (Negative) Urine RBC 26 /hpf (0 - 3) Urine WBC 3 /hpf (0 - 3) Urine Squamous Epithelial Cells None seen /hpf (<5) Urine Amorphous Crystals Mod /hpf (None Seen) Urine Bacteria None seen /hpf (None Seen) Urine Glucose Trace mg/dL (Normal) Labs and/or images reviewed: Labs reviewed by me, Image(s) reviewed by me Assessment/Plan Assessment/Plan Abdominal pain nausea and vomiting unknown etiology: Consult for GI Dr. Castillo appreciated, patient feels better without any symptoms today Acute appendicitis ruled out Acute cholecystitis ruled ou Punctate right UVJ stones, renal ultrasound negative Acute dehydration: IV fluids Time spent 35 minutes Plan discussed with: Patient My Orders Orders - RACHAEL HOPE MD Procedure Category Date Status Time Drug Screen LAB 08/30/24 Logged 12:42 * Gi Dvh Party Bus Driver CONS 08/30/24 Transmitted 12:42 Communication Order ORDERS 08/31/24 Transmitted 09:28 Date of Service: Aug 31, 2024 Billing Provider: RACHAEL HOPE MD Common Visit Codes: [id number] INP/OBS CARE(HIGH) RACHAEL HOPE MD Aug 31, 2024 09:35
--- NOTE | 2024-08-31 09:39 | DVHDS2 ---
Discharge Summary Date of Admission Aug 29, 2024 at 15:03 Date of Discharge: Aug 31, 2024 Admitting Diagnosis Abdominal pain nausea and vomiting Wounds: None Labs/Diagnostic Data: Laboratory Results Test 08/30/24 05:24 08/29/24 08:00 08/29/24 07:35 White Blood Count 9.3 10^3/uL (4.4-10.8) Red Blood Count 5.11 10^6/uL (4.5-5.90) Hemoglobin 12.2 g/dL (13.5-17.5) Hematocrit 37.6 % (41.0-53.0) Mean Corpuscular Volume 73.5 fL (80.0-100.0) Mean Corpuscular Hemoglobin 23.9 pg (28.0-32.0) Mean Corpuscular Hemoglobin Concent 32.5 g/dL (32.0-36.0) Red Cell Distribution Width 15.9 % (11.8-14.3) Platelet Count 221 10^3/uL (140-450) Mean Platelet Volume 9.1 fL (6.9-10.8) Neutrophils (%) (Auto) 45.2 % (37.0-80.0) Lymphocytes (%) (Auto) 47.5 % (10.0-50.0) Monocytes (%) (Auto) 5.1 % (0.0-12.0) Eosinophils (%) (Auto) 1.5 % (0.0-7.0) Basophils (%) (Auto) 0.7 % (0.0-2.0) Neutrophils # (Auto) 4.2 10 ^3/uL (1.6-8.6) Lymphocytes # (Auto) 4.4 10 ^3/uL (0.4-5.4) Monocytes # (Auto) 0.5 10 ^3/uL (0-1.3) Eosinophils # (Auto) 0.1 10 ^3/uL (0-0.8) Basophils # (Auto) 0.1 10 ^3/uL (0-0.2) Nucleated Red Blood Cells 0.1 % Sodium Level 141 mmol/L (136-145) Potassium Level 4.3 mmol/L (3.5-5.1) Chloride Level 109 mmol/L (98-107) Carbon Dioxide Level 25 mmol/L (20-31) Anion Gap 7 (5-15) Blood Urea Nitrogen 18 mg/dL (9-23) Creatinine 0.92 mg/dL (0.700-1.30) Glomerular Filtration Rate Calc 116 mL/min (>90) BUN/Creatinine Ratio 19.6 (10.0-20.0) Serum Glucose 142 mg/dL (74-106) Calcium Level 9.6 mg/dL (8.7-10.4) Total Bilirubin 0.6 mg/dL (0.2-1.0) Aspartate Amino Transferase (AST) 44 U/L (13-40) Alanine Aminotransferase (ALT) 71 U/L (7-40) Alkaline Phosphatase 76 U/L (46-116) Total Protein 6.9 g/dL (5.7-8.2) Albumin 4.2 g/dL (3.2-4.8) Urine Color Madeline (Yellow) Urine Clarity Cloudy (Clear) Urine pH 5.5 (5.0-9.0) Urine Specific [place] 1.031 (1.001-1.035) Urine Protein 1+ (Negative) Urine Ketones Negative (Negative) Urine Blood 3+ /uL (Negative) Urine Nitrite Negative (Negative) Urine Bilirubin Negative (Negative) Urine Urobilinogen Normal mg/dL (Negative) Urine Leukocyte Esterase Negative /uL (Negative) Urine RBC 26 /hpf (0 - 3) Urine WBC 3 /hpf (0 - 3) Urine Squamous Epithelial Cells None seen /hpf (<5) Urine Amorphous Crystals Mod /hpf (None Seen) Urine Bacteria None seen /hpf (None Seen) Urine Glucose Trace mg/dL (Normal) Hemoglobin A1c 7.1 % A1C (<5.7) Other Laboratory Tests 08/30/24 05:24 Brief Hx & Hospital Course: 29-year-old male moderately obese with a BMI of 43 came in complaining of nausea and vomiting and abdominal pain. CT abdomen pelvis without contrast ruled out appendicitis and cholecystitis labs normal treated with the IV fluids and pain medication nausea medication seen by GI Dr. Castillo advised patient to lose weight. At the time of discharge patient is afebrile no abdominal pain no nausea or vomiting and wants to go home. Discharged home. No prescriptions. He had mild right UVJ calculi and kidney ultrasound was negative. Consults/Reason for consult GI Dr. Castillo Operations or Procedures CT abdomen pelvis without contrast Renal ultrasound Condition at Discharge: Fair Final Diagnosis/Problems List Abdominal pain nausea and vomiting unknown etiology: Consult for GI Dr. Castillo appreciated, patient feels better without any symptoms today Acute appendicitis ruled out Acute cholecystitis ruled ou Punctate right UVJ stones Acute dehydration: IV fluids Discharge Disposition: Home Discharge Instruct/Medications Diet: Regular Diet comment: Drink lot of fluids Activity: Light activity Follow Up/Referral: Follow up with your primary Dr Advised to lose weight Medications: None 35 (Time taken for discharge summary 35 minutes) Discharge Statement: "Patient was advised to return to the ER or call 911 if any headaches, dizziness, shortness of breath, chest pain, abdominal pain, bleeding, fevers, or worsening of medical condition. Patient was counseled about treatment plan, medications, possible side effects, patientverbalized understanding. All questions were answered to the best of my ability. This discharge took greater then 30 minutes in planning, reviewing documentation, counseling the patient, and discussing with other team members." ASSESSMENT ASSESSMENT Hospital Course Improved Assessment Abdominal pain nausea and vomiting unknown etiology: Consult for GI Dr. Castillo appreciated, patient feels better without any symptoms today Acute appendicitis ruled out Acute cholecystitis ruled ou Punctate right UVJ stones Acute dehydration: IV fluids Date of Service: Aug 31, 2024 Billing Provider: RACHAEL HOPE MD Common Visit Codes: [id number] DISCH DAY >30min RACHAEL HOPE MD Aug 31, 2024 09:39
[2024-08-31 12:12] VITALS: BP 128/88; PULSE 68; RESP 17; TEMP 97.6; O2SAT 98
[2024-08-31 12:49] LABS: Amphetamine Screen, Urine Neg (NEGATIVE); Barbiturate Scree,Urine Neg (NEGATIVE); Benzodiazephine Screen, Urine Neg (NEGATIVE); Cannabinoid Screen, Urine Neg (NEGATIVE); Cocaine Screen, Urine Neg (NEGATIVE); Opiate Scree,Urine Neg (NEGATIVE); Phencyclidine Screen, Urine Neg (NEGATIVE)
== END 2024-08-31 12:05 | disposition home or self-care (01) | DRG 465 ==
LOC: ER 06:15 → OVERFLOW 15:03 → EAST 19:34
DX: N13.2 Hydronephrosis with renal and ureteral calculous obstruction (principal); K76.0 Fatty (change of) liver, not elsewhere classified; D72.829 Elevated white blood cell count, unspecified; I10 Essential (primary) hypertension; E66.01 Morbid (severe) obesity due to excess calories; E86.0 Dehydration; R73.9 Hyperglycemia, unspecified; Z83.3 Family history of diabetes mellitus; Z68.41 Body mass index [BMI] 40.0-44.9, adult
CPT/HCPCS: 36415; 74178; 76775; 80053; 80307; 81001; 83036; 85025; G0378; J1885